=== PATIENT | male | born 1985 | race Caucasian/White ===

== ENCOUNTER 2018-10-30 14:29 | Outpatient (CLI) | payer BC ==
--- NOTE | 2018-10-30 16:06 | ULT ---
LIMITED ULTRASOUND LEFT BREAST 10/30/18 HISTORY: Palpable abnormality upper inner left breast. FINDINGS: Limited sonographic evaluation left breast was performed. Images were obtained at the 1 and 2 o'clock positions of the left breast in the region of the focal palpable abnormality. No mass or cystic lesi on is seen to correspond to patient's focal palpable abnormality. IMPRESSION: BIRADS 2: Benign Finding(s) Routine annual screening mammography (for women over age 40). Followup evaluation if clinically indicated is recommended. POS: OFF
--- NOTE | 2018-11-03 13:25 | MMO ---
Bilateral MAMMO Bilat Diag [facility]. CLINICAL HISTORY: Patient is 33 years old and is seen for diagnostic exam and in the left breast. The patient has no family history of breast cancer. The patient has no personal history of cancer. VIEWS: The views performed were: bilateral craniocaudal with tomosynthesis; bilateral mediolateral oblique with tomosynthesis; and bilateral mediolateral. FILMS COMPARED: The present examination has been compared to a prior imaging study performed at [facility] on 10/30/2018. MAMMOGRAM FINDINGS: The breasts are almost entirely fat. No mass is seen in the left breast to correspond to the patient's palpable abnormality in the upper inner left breast. No findings are seen to suggest gynecomastia. There are no suspicious masses, suspicious calcifications, or new areas of architectural distortion. IMPRESSION: THERE IS NO MAMMOGRAPHIC EVIDENCE OF MALIGNANCY. PATIENT'S PALPABLE ABNORMALITY SHOULD BE FURTHER MANAGED CLINICALLY. ANY DECISION TO BIOPSY SHOULD BE BASED ON CLINICAL ASSESSMENT. THE RESULTS OF THIS EXAM WERE SENT TO THE PATIENT. ACR BI-RADS Category 2 - Benign finding MAMMOGRAPHY NOTE: 1. A negative mammogram report should not delay a biopsy if a dominant of clinically suspicious mass is present. 2. Approximately 10% to 15% of breast cancers are not detected by mammography. 3. Adenosis and dense breasts may obscure an underlying neoplasm.
== END 2018-10-30 14:30 | disposition home or self-care (01) ==
LOC: BICMAMMO 14:29
PROVIDERS: ATTEND Family Medicine
DX: N63.22 Unspecified lump in the left breast, upper inner quadrant (principal)
CPT/HCPCS: 77066; G0279

== ENCOUNTER 2020-05-01 19:00 | Outpatient (CLI) | payer BC | END 2020-05-01 19:01 | disposition home or self-care (01) | LOC: SLEEPLAB 19:00 | PROVIDERS: ATTEND Family Medicine | DX: G47.33 Obstructive sleep apnea (adult) (pediatric) (principal); R06.83 Snoring; R53.83 Other fatigue; G47.00 Insomnia, unspecified; G47.10 Hypersomnia, unspecified; E66.9 Obesity, unspecified; Z68.43 Body mass index [BMI] 50.0-59.9, adult | CPT/HCPCS: 95811 ==